=== PATIENT | female | born 1995 | race Caucasian/White ===

== ENCOUNTER 2016-08-08 20:19 | Emergency (ER) | payer OTHER ==
[2016-08-08 20:38] VITALS: BP 129/49; PULSE 77; RESP 16; TEMP 98.6; O2SAT 96
[2016-08-08 20:39] LABS: COLOR PALE YELLOW; LEUKOCYTE ESTERASE,URINE NEGATIVE (NEGATIVE); NITRITE,URINE NEGATIVE (NEGATIVE); PH,URINE 7.5 (5.0-7.5)
--- NOTE | 2016-08-08 21:29 | UCPHY ---
H & P Time Seen by Provider: 08/08/16 20:38 Patient Type: Established HPI/ROS: 21-year-old female presents for burning with urination that began on Thursday. No fevers no chills no nausea no vomiting no flank pain no back pain. No other associated symptoms She states she is really not concerned that this could be a sexually transmitted disease for she has only had sex 1 time in the last 2 months and it was protected with condoms. Review of systems As per HPI General no fever no chills no weakness HEENT no eye pain no eye discharge. No eye redness, no sore throat Respiratory no cough, no shortness of breath Cardiac no chest pain, no peripheral edema GI no abdominal pain, no diarrhea, no constipation, no nausea, no vomiting no flank pain, no hematuria, positive dysuria Musculoskeletal no myalgias, no joint pain Heme no easy bruising, no easy bleeding Endo no polyuria, no polydipsia Skin no rashes, no pruritus Neuro no syncope, no dizziness, no headaches Psych is no suicidal ideation, no homicidal ideation Past Medical/Surgical History: Depression/anxiety Social History: Student Smoking Status: Never smoked Physical Exam: Alert and oriented in no acute distress nontoxic appearance, afebrile Atraumatic normocephalic Neck no JVD Lungs clear to auscultation, no respiratory distress Heart regular rate and rhythm Extremities no cyanosis clubbing edema External genitalia normal, no lesions No swelling no erythema no ulcerations, no discharge Constitutional: Initial Vital Signs Temperature (C) 37 C 08/08/16 20:37 Heart Rate 77 08/08/16 20:37 Respiratory Rate 16 08/08/16 20:37 Blood Pressure 129/49 H 08/08/16 20:37 O2 Sat (%) 96 08/08/16 20:37 O2 Delivery Mode Room Air Allergies/Adverse Reactions: No Known Allergies Allergy (Unverified 09/20/11 20:05) Home Medications: Medication Instructions Recorded Bcp 08/08/16 Zoloft 50mg (*) 08/08/16 Medical Decision Making ED Course/Re-evaluation: Patient seen and evaluated for burning with urination Urinalysis negative for infection exam no evidence of lesions or anything landing itself to causing burning with urination Impression Dysuria unknown etiology Plan Return as needed Follow up with Gynecology if not improving - Data Points Laboratory Results: 08/08/16 20:30 Urine Color PALE YELLOW Urine Appearance CLEAR Urine pH 7.5 (5.0-7.5) Ur Specific [place] 1.010 (1.002-1.030) Urine Protein NEGATIVE (NEGATIVE) Urine Ketones NEGATIVE (NEGATIVE) Urine Blood NEGATIVE (NEGATIVE) Urine Nitrate NEGATIVE (NEGATIVE) Urine Bilirubin NEGATIVE (NEGATIVE) Urine Urobilinogen 0.2 EU (0.2-1.0) Ur Leukocyte Esterase NEGATIVE (NEGATIVE) Urine Glucose NEGATIVE (NEGATIVE) Departure - Departure Disposition: Home, Routine, Self-Care Clinical Impression: Dysuria Condition: Good Instructions: Dysuria (ED) Additional Instructions: increase fluids return if worsening, high fever, vomiting, or severe pain if burning with urination continues consider follow up with [facility] Referrals: Sarika Vázquez MD [Primary Care Provider] - As per Instructions Stephanie Sood MD [Medical Doctor] - As per Instructions - PQRS PQRS Measurement: na
== END 2016-08-08 21:35 | disposition home or self-care (01) ==
LOC: CED 20:19
DX: R30.0 Dysuria (principal)
CPT/HCPCS: 81003-PO; 99214-PO; G0463-PO